=== PATIENT | female | born 1955 | race Caucasian/White ===

== ENCOUNTER 2017-06-17 23:39 | Inpatient (IN) | payer BC ==
[~2017-06-17] VITALS: Ht 172.7 cm; Wt 91.6 kg
[2017-06-18] MEDS ORDERED: TETANUS, DIPHTHERIA, PERTUSSIS VAC/PF 0.5ML (>7YR OLD) IM ONE (01:00)
[2017-06-18] MEDS ORDERED: KETOROLAC 30MG/ML VIAL IV ONE (01:00)
[2017-06-18] MEDS ORDERED: ONDANSETRON HCL 4MG/2ML VIAL IV ONE (01:00)
[2017-06-18] MEDS ORDERED: MORPHINE SULFATE 10 MG/ML CPJ IV ONE (01:00)
[2017-06-18] MEDS ORDERED: CEFAZOLIN 1000MG PREMIX 50 ML IV ONE (01:00)
[2017-06-18 01:29] LABS: BASOPHILS % 0.7 % (0.0-2.0); EOSINOPHILS % 1.4 % (0.0-5.0); HEMATOCRIT. 34.7 % (36.0-48.0); HEMOGLOBIN. 10.6 g/dL (12.0-16.0); LYMPHOCYTES % 15.4 % (20.0-50.0); MEAN CORPUSCULAR HEMOGLOBIN 24.9 pg (28.0-32.0); MEAN CORPUSCULAR VOLUME 81.7 fL (81.0-99.0); MEAN PLATELET VOLUME 9.3 fl (7.4-10.4); MONOCYTES % 7.2 % (2.0-8.0); NEUTROPHILS % 75.3 % (40.0-76.0); PLATELET 238 x1000/uL (130-400); RED BLOOD CELL COUNT 4.25 mill/uL (4.2-5.4); RED CELL DISTRIBUTION WIDTH 17.2 % (11.6-14.6)
[2017-06-18 01:44] LABS: CARBON DIOXIDE 22 mEq/L (21-32); CHLORIDE 107 mEq/L (98-107); TROPONIN I < 0.02 ng/mL (0.00-0.04)
[2017-06-18] MEDS ORDERED: KETAMINE HCL 50 MG/ML 10ML IV ONE (02:30)
[2017-06-18] MEDS ORDERED: FENTANYL CITRATE/PF 50MCG/ML 2ML VIAL IV ONE (02:30)
[2017-06-18] MEDS ORDERED: MIDAZOLAM HCL 2 MG/2 ML VIAL IV ONE (02:30)
[2017-06-18 02:33] LABS: PROTHROMBIN TIME 10.7 sec (9.4-11.6)
[2017-06-18] MEDS ORDERED: BACITRACIN ZINC OINT UDPKT TOP ONE (03:15)
[2017-06-18] MEDS ORDERED: SODIUM CHLORIDE 0.9% 500 ML IV ONE (05:21)
[2017-06-18] MEDS ORDERED: ACETAMINOPHEN 325MG TABLET PO PRN (11:45)
[2017-06-18] MEDS ORDERED: HYDROCODONE/ACETAMINOPHEN 10/325MG TABLET PO PRN (11:45)
[2017-06-18] MEDS ORDERED: IPRATROPIUM/ALBUTEROL 0.5-3(2.5)MG/3ML NEB INH PRN (11:45)
[2017-06-18] MEDS ORDERED: DIPHENHYDRAMINE 50MG/ML VIAL IV PRN (11:45)
[2017-06-18] MEDS ORDERED: DOCUSATE SODIUM 100MG CAPSULE PO PRN (11:45)
[2017-06-18] MEDS ORDERED: ACETAMINOPHEN 650MG/20.3ML UDC GT PRN (11:45)
[2017-06-18] MEDS ORDERED: GUAIFENESIN 200MG/10ML SUGAR FREE UDC PO PRN (11:45)
[2017-06-18] MEDS ORDERED: ACETAMINOPHEN 650MG SUPP PR PRN (11:45)
[2017-06-18] MEDS ORDERED: CLONIDINE 0.1MG TABLET PO PRN (11:45)
[2017-06-18] MEDS ORDERED: HYDROCODONE/ACETAMINOPHEN 5/325MG TABLET PO PRN (11:45)
[2017-06-18] MEDS ORDERED: MAGNESIUM/ALUMINUM HYDROXIDE/SIMETHICONE 30ML UDC PO PRN (11:45)
[2017-06-18] MEDS: MORPHINE SULFATE 4 MG/ML CPJ (NOT FOR IM USE) IV PRN ×3 (12:16→22:36)
[2017-06-18 14:10] VITALS: BP 126/72
[2017-06-18 15:15] VITALS: BP 115/76
[2017-06-18] MEDS: ENOXAPARIN 40MG/0.4ML SYR SUBCUT SCH (15:41)
[2017-06-18] MEDS ORDERED: NA PHOS,M-B/NA PHOS,DI-BA ENEMA 118ML PR PRN (16:00)
[2017-06-18] MEDS: PANTOPRAZOLE SODIUM 40 MG/VIAL IV SCH (17:09)
[2017-06-18] MEDS: ONDANSETRON HCL 4MG/2ML VIAL IV PRN (17:09)
[2017-06-18 19:14] LABS: CLARITY URINE CLEAR (CLEAR); COLOR URINE YELLOW (YELLOW); KETONES URINE NEGATIVE (NEGATIVE); LEUKOCYTE ESTERASE URINE NEGATIVE (NEGATIVE); NITRITE URINE NEGATIVE (NEGATIVE); OCCULT BLOOD URINE NEGATIVE (NEGATIVE); PROTEIN URINE NEGATIVE (NEGATIVE); SPECIFIC GRAVITY URINE 1.026 (1.005-1.030)
[2017-06-18 19:36] LABS: *AMPHETAMINES SCREEN URINE NEGATIVE (NEGATIVE); *BARBITURATES SCREEN URINE NEGATIVE (NEGATIVE); *BENZODIAZEPINES SCREEN URINE PRESUMTIVE POSITIVE (NEGATIVE); *COCAINE SCREEN URINE NEGATIVE (NEGATIVE); CANNABINOID URINE SCREEN NEGATIVE (NEGATIVE); METHADONE URINE SCREEN NEGATIVE (NEGATIVE); OPIATES URINE SCREEN PRESUMTIVE POSITIVE (NEGATIVE); PHENCYCLIDINE URINE SCREEN NEGATIVE (NEGATIVE)
[2017-06-18] MEDS: CEFAZOLIN 1000MG PREMIX 50 ML IV SCH (19:57)
[2017-06-18] MEDS: SODIUM CHLORIDE 0.45% 1,000 ML IV SCH (19:57)
[2017-06-18 20:00] VITALS: BP 131/71
[2017-06-18] MEDS: SODIUM CHLORIDE 0.9% INJ 3ML FLUSH IVF SCH (21:19)
[2017-06-19] VITALS: BP 125/54
[2017-06-19] MEDS: CEFAZOLIN 1000MG PREMIX 50 ML IV SCH ×3 (03:44→18:01)
[2017-06-19] MEDS: SODIUM CHLORIDE 0.45% 1,000 ML IV SCH (03:44)
[2017-06-19 04:00] VITALS: BP 125/66
[2017-06-19] MEDS: ONDANSETRON HCL 4MG/2ML VIAL IV PRN (05:22)
[2017-06-19] MEDS: SODIUM CHLORIDE 0.9% INJ 3ML FLUSH IVF SCH ×3 (05:22→22:00)
[2017-06-19 06:58] LABS: CARBON DIOXIDE 30 mEq/L (21-32); CHLORIDE 106 mEq/L (98-107); HDL CHOLESTEROL 53 mg/dL (40-59); LDL CHOLESTEROL 93 mg/dL (5-100)
[2017-06-19 07:10] LABS: BASOPHILS % 0.5 % (0.0-2.0); EOSINOPHILS % 3.6 % (0.0-5.0); HEMATOCRIT. 28.7 % (36.0-48.0); HEMOGLOBIN. 9.1 g/dL (12.0-16.0); LYMPHOCYTES % 23.6 % (20.0-50.0); MEAN CORPUSCULAR HEMOGLOBIN 25.5 pg (28.0-32.0); MEAN CORPUSCULAR VOLUME 80.1 fL (81.0-99.0); MEAN PLATELET VOLUME 9.4 fl (7.4-10.4); MONOCYTES % 9.1 % (2.0-8.0); NEUTROPHILS % 63.2 % (40.0-76.0); PLATELET 227 x1000/uL (130-400); RED BLOOD CELL COUNT 3.58 mill/uL (4.2-5.4); RED CELL DISTRIBUTION WIDTH 16.9 % (11.6-14.6)
[2017-06-19 08:00] VITALS: BP_SYST 122; BP_SYST 146; BP_DIAS 76; BP_DIAS 78; BP_DIAS 87
[2017-06-19] MEDS ORDERED: NORMAL SALINE 0.9% 10 ML SYR ONE ×2 (08:18→08:59)
[2017-06-19] MEDS ORDERED: BACITRACIN ZINC 15GM TUBE TOP ONE (08:18)
[2017-06-19] MEDS ORDERED: BACITRACIN 50,000 UNITS/VIAL ONE ×2 (08:18→08:59)
[2017-06-19] MEDS ORDERED: VANCOMYCIN HCL 500 MG/VIAL ONE (08:18)
[2017-06-19] MEDS: PANTOPRAZOLE SODIUM 40 MG/VIAL IV SCH (08:22)
[2017-06-19] MEDS ORDERED: LIDOCAINE 1%/EPI 1:200,000 10 ML VIAL IJ ONE (09:38)
[2017-06-19] MEDS ORDERED: ROPIVACAINE HCL 10MG/ML 20 ML VIAL EPI ONE (09:38)
[2017-06-19] MEDS ORDERED: HYDROMORPHONE HCL/PF 2MG/ML CPJ IV PRN (10:30)
[2017-06-19] MEDS ORDERED: MEPERIDINE HCL/PF 25MG/ML CPJ IV PRN (10:30)
[2017-06-19] MEDS ORDERED: ONDANSETRON HCL 4MG/2ML VIAL IV PRN (10:30)
[2017-06-19] MEDS ORDERED: LABETALOL HCL 20MG/4ML CARPUJECT IV PRN (10:30)
[2017-06-19 12:00] VITALS: BP 151/70
[2017-06-19 16:00] VITALS: BP 142/60
[2017-06-19] MEDS: ENOXAPARIN 40MG/0.4ML SYR SUBCUT SCH (18:02)
[2017-06-19 20:00] VITALS: BP 137/65
[2017-06-19] MEDS: MORPHINE SULFATE 4 MG/ML CPJ (NOT FOR IM USE) IV PRN (22:00)
[2017-06-20] VITALS (7 sets, daily range): BP systolic 128–149; BP diastolic 65–77
[2017-06-20] MEDS: MORPHINE SULFATE 4 MG/ML CPJ (NOT FOR IM USE) IV PRN ×4 (02:30→17:04)
[2017-06-20] MEDS: SODIUM CHLORIDE 0.45% 1,000 ML IV SCH (02:38)
[2017-06-20] MEDS: SODIUM CHLORIDE 0.9% INJ 3ML FLUSH IVF SCH ×2 (05:07→17:02)
[2017-06-20] MEDS: PANTOPRAZOLE SODIUM 40 MG/VIAL IV SCH (09:19)
[2017-06-20] MEDS: ENOXAPARIN 40MG/0.4ML SYR SUBCUT SCH (17:03)
[2017-06-21] MEDS ORDERED: FAMOTIDINE 20MG/2ML VIAL IV SCH (09:00)
== END 2017-06-20 20:05 | disposition home or self-care (01) | DRG 500 ==
LOC: ER 06-18 00:34 → 8WST 06-18 02:45 → ENRESERV 06-18 13:23
PROVIDERS: ADMIT Family Medicine; ATTEND Family Medicine
PROC: 0PSK04Z Reposition Right Ulna with Internal Fixation Device, Open Approach (ICD-10-PCS; 2017-06-19)
PROC: 0PDK0ZZ Extraction of Right Ulna, Open Approach (ICD-10-PCS; principal; 2017-06-19 09:00)
DX: S52.001B Unspecified fracture of upper end of right ulna, initial encounter for open fracture type I or II (principal); S42.401B Unspecified fracture of lower end of right humerus, initial encounter for open fracture; N20.0 Calculus of kidney; W01.0XXA Fall on same level from slipping, tripping and stumbling without subsequent striking against object, initial encounter; F32.9 Major depressive disorder, single episode, unspecified; X58.XXXA Exposure to other specified factors, initial encounter; S52.123A Displaced fracture of head of unspecified radius, initial encounter for closed fracture; K21.9 Gastro-esophageal reflux disease without esophagitis; E66.9 Obesity, unspecified; W19.XXXA Unspecified fall, initial encounter; Y93.9 Activity, unspecified; Y92.838 Other recreation area as the place of occurrence of the external cause; Y99.8 Other external cause status; Y93.89 Activity, other specified; Y92.89 Other specified places as the place of occurrence of the external cause; Z68.30 Body mass index [BMI] 30.0-30.9, adult
CPT/HCPCS: 12001; 25605; 36415; 73060; 73070; 73090; 76000; 80053; 80061; 80305; 81003; 83605; 83690; 84484; 85025; 85610; 87040; 93005; 96365; 96375; 99152; 99285; A4216; A4565; C9113; J0690; J1650; J1885; J2175; J2250; J2270; J2405; J2795; J3010; J3370; J3490; J7030; J7040